=== PATIENT | male | born 1985 | race Caucasian/White ===

== ENCOUNTER → 2023-04-15 20:04 | Outpatient (REF) | payer BC, SELFPAY | LOC: MRI 20:04 | PROVIDERS: ATTENDING PHYSICIAN Physician Assistant Medical | DX: R55 Syncope and collapse (principal) | CPT/HCPCS: 70553 ==

== ENCOUNTER → 2023-12-25 10:29 | Outpatient (REF) | payer OTHER, SELFPAY | LOC: RAD 10:29 | PROVIDERS: ATTENDING PHYSICIAN Nurse Practitioner Family; FAMILY PHYSICIAN Physician Assistant Medical | DX: R05.3 Chronic cough (principal) | CPT/HCPCS: 71046 ==

== ENCOUNTER → 2024-10-13 14:18 | Outpatient (REF) | payer OTHER, SELFPAY | LOC: DHSLP 14:18 | PROVIDERS: ATTENDING PHYSICIAN Physician Assistant Medical | DX: G47.33 Obstructive sleep apnea (adult) (pediatric) (principal); R06.83 Snoring | CPT/HCPCS: 95800 ==